=== PATIENT | male | born 1970 | race Caucasian/White ===

== ENCOUNTER 2016-11-29 19:24 | Inpatient (IN) | payer MEDICAID ==
[~2016-11-29] VITALS: Ht 172.7 cm; Wt 80.1 kg
[2016-11-29 19:38] VITALS: Ht 172.7 cm; Wt 80.1 kg
[2016-11-29] MEDS ORDERED: SOD CHLORIDE 0.9% 1,000 ML IV STA (20:35)
[2016-11-29 20:54] LABS: ADD SCAN DIFF NO
[2016-11-29 20:55] LABS: BASOPHIL # 0.1 10^3/ul (0.0-0.1); BASOPHILS % 0.7 % (0.0-2.0); EOSINOPHILS # 0.2 10^3/ul (0.0-0.5); EOSINOPHILS % 2.1 % (0.0-7.0); HEMATOCRIT 42.8 % (42.0-52.0); LYMPHOCYTES # 1.6 10^3/ul (0.8-2.9); LYMPHOCYTES % 19.1 % (15.0-51.0); MEAN CORPUSCULAR HEMOGLOBIN 28.7 pg (29.0-33.0); MEAN PLATELET VOLUME 10.2 fl (7.4-10.4); MONOCYTE # 0.9 10^3/ul (0.3-0.9); MONOCYTES % 10.1 % (0.0-11.0); NEUTROPHIL # 5.8 10^3/ul (1.6-7.5); NEUTROPHILS % 67.5 % (39.0-77.0); PLATELET COUNT 234 10^3/UL (140-415); RED BLOOD COUNT 5.22 10^6/ul (4.70-6.10); RED CELL DISTRIBUTION WIDTH 12.1 % (11.5-14.5); WHITE BLOOD COUNT 8.6 10^3/ul (4.8-10.8)
[2016-11-29 21:14] LABS: ALBUMIN 4.4 g/dl (3.3-4.9); POTASSIUM 4.4 mmol/L (3.5-5.1)
[2016-11-29 21:16] LABS: BILIRUBIN,INDIRECT 0.3 mg/dl (0-1.1); BILIRUBIN,TOTAL 0.3 mg/dl (0.2-1.3); CREATININE 0.74 mg/dl (0.61-1.24)
--- NOTE | 2016-11-29 21:16 | RADRPT ---
PROCEDURE: XR Chest. CLINICAL INDICATION: Bowel pain. TECHNIQUE: PA and Lateral views of the chest were obtained. COMPARISON: None. FINDINGS: The cardiomediastinal silhouette is within normal limits. The lungs are clear. No signs of pleural f luid or pneumothorax are seen. The osseous structures and soft tissues are unremarkable. IMPRESSION: No evidence for active cardiopulmonary disease. RPTAT: [facility] Physician Edward Date Time Electronically viewed and signed by Brandy Roque Physician on 11/29/2016 21:15 RS/
[2016-11-29 21:17] LABS: ALBUMIN/GLOBULIN RATIO 1.57; CALCIUM 9.3 mg/dl (8.4-10.2); TOTAL PROTEIN 7.2 g/dl (6.1-8.1)
[2016-11-29 21:29] LABS: TROPONIN-I 0.052 ng/ml (0.00-0.12)
--- NOTE | 2016-11-29 21:29 | RADRPT ---
PROCEDURE: CT brain without contrast CLINICAL INDICATION: Headaches. Concern for intracranial hemorrhage TECHNIQUE: A CT of the brain was performed utilizing axial sections from the skull base through th e vertex without contrast. Sagittal and coronal images were also reformatted. The exam CTDIvol = 45. 01 mGy and DLP = 720.23 mGy-cm. COMPARISON: None available FINDINGS: No acute intracranial hemorrhage is identified. There is no mass effect or midline shift. No extra -axial fluid collection is seen. The ventricles and sulci are within normal limits for size and con figuration. Focal area of low attenuation area in the right parietal white matter near the convexit y is nonspecific, possibly the sequela of a small vessel ischemia (series 2 image 18). The remainin g white matter is grossly normal Mcduffie-white differentiation is preserved. The osseous structures are unremarkable. The mastoid air cells and visualized paranasal sinuses are clear. RPTAT:HJJR IMPRESSION: 1. No evidence of intracranial hemorrhage or mass effect. 2. Focal area of low attenuation in the right parietal subcortical white matter is nonspecific, pos sibly the sequela of small vessel ischemic disease with less likely possibilities a manifestation of migraine disorder, vasculitis or demyelination. Physician Barrera Date Time Electronically viewed and signed by Physician Barrera on 11/29/2016 21:29 /
[2016-11-29] MEDS ORDERED: ASPIRIN 81 MG TAB PO ONE (22:00)
[2016-11-29 23:56] VITALS: BP 109/70; RESP 20
[2016-11-30] VITALS (10 sets, daily range): BP systolic 96–115; BP diastolic 54–69; PULSE 55–69; RESP 16–20
[2016-11-30] MEDS ORDERED: ONDANSETRON 4 MG INJ IV PRN
[2016-11-30] MEDS ORDERED: morphine 2 MG INJ IV PRN
--- NOTE | 2016-11-30 00:19 | ERA ---
ER Documentation Chief Complaint Date/Time DATE: 11/30/16 TIME: 00:10 Chief Complaint Weakness since 1700 HPI 46-year-old man here for evaluation of 2 syncopal episodes which occurred today while in a hot shower. He called out to his who helped him lay down on the ground, episode was witnessed and he had no seizure activity although shortly after awaking he had a second syncopal episode which lasted for a few seconds as well. Upon further questioning patient states he has had tremors to his left upper extremity 2 weeks which are new. Patient denies headache or blurry vision, no vomiting or diarrhea, no complaints of chest pain or shortness of breath. Patient denies any new medication use and no history of RI or CVA ROS All systems reviewed and are negative except as per history of present illness. Medications Home Meds No Active Prescriptions or Reported Meds Allergies Allergies: Coded Allergies: gabapentin (Verified Allergy, Intermediate, hives, 11/29/16) PMhx/Soc None Medical and Surgical Hx: pt denies Medical Hx History of Surgery: Yes (RECENT LAMINECTOMY) Hx Alcohol Use: No Hx Substance Use: No Hx Tobacco Use: No Smoking Status: Never smoker FmHx Family History: No diabetes Physical Exam Vitals Vital Signs Date Time Temp Pulse Resp B/P Pulse Ox O2 Delivery O2 Flow Rate FiO2 11/29/16 22:13 59 18 115/73 99 11/29/16 19:38 98.4 64 20 116/68 98 Physical Exam GENERAL: Well-developed, well-nourished, well-hydrated, in no apparent distress , looks nontoxic in appearance HEENT: Moist mucous membranes, pink conjunctiva, no cervical spine tenderness or step-off deformities, no goiter, no jaundice or icterus, extraocular movements intact without pain. No submandibular induration, and no pharyngeal erythema NEURO: Alert and oriented 3, cranial nerves II through XII intact bilaterally, pupils equal round reactive to light, no focal deficits or facial asymmetry, sensation intact distally Strength 5/5 in upper and lower extremities bilaterally. No pronator drift, no nystagmus CARDIAC: Bradycardic and regular, no murmurs rubs or gallops LUNGS: Clear bilaterally no wheezing crackles or stridor ABDOMEN: Soft nontender, no guarding, no rigidity, no rebound, no psoas sign no obturator sign. Normoactive bowel sounds SKIN: Warm and dry to touch, no abrasions, contusions, or hematomas, no lacerations, no ecchymosis, no target lesions, and without ulcers EXTREMITIES: No clubbing cyanosis or edema, calves are bilaterally symmetrical, no Homans sign, no popliteal cord sign. Distal pulses equal and bilateral PSYCH: Normal affect without agitation or irritability Result Diagram: 11/29/16204911/29/162049 Results 24 hrs Laboratory Tests Test 11/29/16 20:50 White Blood Count 8.610^3/ul Red Blood Count 5.2210^6/ul Hemoglobin 15.0g/dl Hematocrit 42.8% Mean Corpuscular Volume 82.0fl Mean Corpuscular Hemoglobin 28.7pg Mean Corpuscular Hemoglobin Concent 35.0g/dl Red Cell Distribution Width 12.1% Platelet Count 93010^3/UL Mean Platelet Volume 10.2fl Neutrophils % 67.5% Lymphocytes % 19.1% Monocytes % 10.1% Eosinophils % 2.1% Basophils % 0.7% Nucleated Red Blood Cells % 0.0/100WBC Neutrophils # 5.810^3/ul Lymphocytes # 1.610^3/ul Monocytes # 0.910^3/ul Eosinophils # 0.210^3/ul Basophils # 0.110^3/ul Nucleated Red Blood Cells # 0.010^3/ul Sodium Level 138mmol/L Potassium Level 4.4mmol/L Chloride Level 102mmol/L Carbon Dioxide Level 23mmol/L Anion Gap 17 Blood Urea Nitrogen 18mg/dl Creatinine 0.74mg/dl Glucose Level 109mg/dl Calcium Level 9.3mg/dl Total Bilirubin 0.3mg/dl Direct Bilirubin 0.00mg/dl Indirect Bilirubin 0.3mg/dl Aspartate Amino Transf (AST/SGOT) 38IU/L Alanine Aminotransferase (ALT/SGPT) 62IU/L Alkaline Phosphatase 50IU/L Troponin I 0.052ng/ml Total Protein 7.2g/dl Albumin 4.4g/dl Globulin 2.80g/dl Albumin/Globulin Ratio 1.57 Lipase 53U/L Current Medications Medications (Trade) Dose Ordered Sig/Aron Route PRN Reason Start Time Stop Time Status Last Admin Dose Admin Sodium Chloride (NS) 1,000 ml @ 1,000 mls/hr Q1H STAT IV 11/29/16 20:35 11/29/16 21:34 DC 11/29/16 20:52 Aspirin (Aspirin) 162 mg ONCE ONCE PO 11/29/16 22:00 11/29/16 22:01 DC 11/29/16 22:09 Procedures/[facility] IV line was established patient was placed on teletypesetter monitor rhythm strip revealed a sinus bradycardia at about 60 bpm with upright P and T waves. Patient was afebrile. I administered 1 L normal saline intravenous. EKG was performed, read by me revealed a sinus bradycardia 56 bpm, normal axis with a left ventricular conduction delay and a QRS duration of 104 ms and early repolarization's in precordial leads, no concerning ST elevations or depressions noted. CBC and electrolytes were normal, liver function tests are normal, troponin was negative. CT scan of the brain was performed revealing a right subcortical infarct, although other differentials do exist. Please refer to radiologist dictation for full report. I administered aspirin 162 mg p.o. for neuroprotective measures. Patient is not a TPA candidate as his symptoms of left upper extremity tremor began about 2 weeks ago but in the setting of a abnormal finding on the right parietal subcortical region he will be admitted to telemetry setting for continued medical management and neurology consultation. Critical Care: Time: 32 minutes, this was time separate from other procedures. Treatments/Evaluations: Close monitoring and treatment of unstable vital signs, cardiorespiratory, and neurologic status, while maintaining tight balance of fluid, respiratory, and cardiac interventions. Departure Diagnosis: Primary Impression: Tremor Additional Impressions: CVA (cerebral vascular accident) Qualified Code: I63.9 - Cerebrovascular accident (CVA), unspecified mechanism Syncope Qualified Code: R55 - Syncope, unspecified syncope type Symptomatic bradycardia Condition: NATALIIA Benavidez MD November 30, 2016 00:19
[2016-11-30 04:00] LABS: ALBUMIN 3.7 g/dl (3.3-4.9)
[2016-11-30 04:01] LABS: POTASSIUM 3.7 mmol/L (3.5-5.1)
[2016-11-30 04:03] LABS: ALBUMIN/GLOBULIN RATIO 1.42; BILIRUBIN,INDIRECT 0.3 mg/dl (0-1.1); BILIRUBIN,TOTAL 0.3 mg/dl (0.2-1.3); CREATININE 0.77 mg/dl (0.61-1.24); TOTAL PROTEIN 6.3 g/dl (6.1-8.1)
[2016-11-30 04:04] LABS: CALCIUM 8.9 mg/dl (8.4-10.2); CHOL/HDL RATIO 4.7 RATIO; MAGNESIUM 2.1 mg/dl (1.7-2.5)
--- NOTE | 2016-11-30 08:22 | HP ---
DATE OF ADMISSION: 11/29/2016 TIME SEEN: 23:30. CHIEF COMPLAINT: Loss of consciousness. HISTORY OF PRESENT ILLNESS: The patient is a 46-year-old male with no significant past medical history who presented to the Emergency Department after having experienced a loss of consciousness. The patient was taking a shower and shaving when he experienced loss of consciousness. He said he felt heaviness in left arm and palpitations prior to syncopal episode. He was helped by his who placed him on the floor. It seems like, after the patient regained his consciousness, he had an episode of left upper extremity shaking and subsequently had another episode of loss of consciousness lasting several seconds to about a minute. He denied any chest pain, fever, chills, nausea, vomiting, headache, or blurry vision. He had a back surgery a month and for last 2 weeks he noted tremor in his left hand. He also reported "a smell of blood" for past 2 weeks. When patient presented to the ER, his initial vitals were stable. His basic labs were unremarkable. A head CT without contrast was done which showed a focal area of low attenuation in the right parietal subcortical white matter, which is nonspecific, possibly the sequela of small vessel ischemic disease with less likely possibility of a manifestation of migraine disorder. Chest x- ray without any evidence of acute cardiopulmonary disease. The patient was given aspirin and a liter of normal saline and currently admitted to telemetry unit. REVIEW OF SYSTEMS: A 12-point review of systems is performed and negative except as mentioned in HPI. PAST MEDICAL HISTORY: As per HPI. PAST SURGICAL HISTORY: As per HPI. SOCIAL HISTORY: Denied a history of tobacco, alcohol or illicit drug use. ALLERGIES: GABAPENTIN. HOME MEDICATIONS: None. PHYSICAL EXAMINATION VITAL SIGNS: Stable. GENERAL: The patient is lying in bed in no acute distress. He actually looks comfortable. HEENT: Normocephalic, atraumatic. Extraocular muscles intact. No scleral icterus. CARDIOVASCULAR: Regular rate and rhythm with no extra sounds. LUNGS: Clear. ABDOMEN: Soft, nontender, nondistended. Positive bowel sounds. EXTREMITIES: No edema. NEUROLOGIC: No focal deficits. He has 5/5 strength in both upper and lower extremities. Sensations are intact to light touch. LABORATORY: Basic CBC and CMP are unremarkable. IMAGING: Chest x-ray and a brain CT without contrast with results as mentioned in the HPI. IMPRESSION: 1. Syncope. 2. Probable cerebrovascular accident. PLAN: Continue telemetry monitoring. We will further work up his syncope and the CT of the head finding by obtaining an MRI of the brain and common carotid Doppler ultrasound and 2D echo. We will trend his troponin. The need for neurology and cardiology consults will be determined based on his clinical course. He will be evaluated by physical therapy prior to discharge. In the meantime, he will be placed on aspirin and statin and we will check a fasting lipid panel, A1c and TSH in the morning. Further workup and management per clinical course. Dictated By: JENNIFER ANDERSON/CASANDRA Conf#: [id number] DID#: [id number] MTDD
[2016-11-30] MEDS: ASPIRIN 81 MG TAB PO SCH (08:36)
[2016-11-30] MEDS: ENOXAPARIN 40 MG/0.4 ML SYG SC SCH (08:40)
--- NOTE | 2016-11-30 09:19 | RADRPT ---
PROCEDURE: Carotid ultrasound CLINICAL INDICATION: Stroke, carotid bruits TECHNIQUE: Mcduffie scale, color doppler, spectral doppler ultrasound of the bilateral carotid and rasta tebral arteries. This study indirectly references the measurement of the distal ICA diameter as the denominator for s tenosis measurement. Validated velocity measurements with angiographic measurements, velocity criter ia are extrapolated from diameter data as defined by: *Cartoid artery stenosis: mcduffie-scale and Doppl er US diagnosis. Society of Radiologists in Ultrasound Consensus Conference. Radiology 2003; 229: 34 0-346. SRU Consensus Conference Criteria for the Diagnosis of Carotid Artery Stenosis* Degree of Stenosis, % ICA PSV, cm/sec Plaque Estimate, % ICA/CCA PSV Ratio Normal <125 None <2.0 <50 <125 <50 <2.0 50 69 125-230 >50 2.0-4.0 >70 but less than near occlusion >230 >50 <4.0 Near occlusion High, low, or undetectable Visible Variable Total occlusion Undetectable Visible, no detectable lumen Not applicable COMPARISON: No prior studies are available for comparison. FINDINGS: Location Right CHY402 cm/sec Prox ICA 109 cm/sec Mid ICA80 cm/sec Dist ASU305 cm/sec YYC261 cm/sec ICA/CCA1.3 Left LVR785 cm/sec Prox ICA 91 cm/sec Mid ICA98 cm/sec Dist ICA91 cm/sec MHG929 cm/sec ICA/CCA0.9 Plaque burden: No significant plaque is seen. Antegrade flow is seen within the vertebral arteries bilaterally. IMPRESSION: Elevated peak systolic velocities are observed within the distal portion of the right internal carot id artery suggesting a 50 - 69% stenosis however this appears discordant with the visualized degree of plaque burden and may be due to tortuosity. CT angiography of the extracranial circulation is re commended for further evaluation. RPTAT: AADD .Ozzy Suarez MD, Date Time Electronically viewed and signed by .Ozzy Suarez MD, on 11/30/2016 09:18 .B/
--- NOTE | 2016-11-30 16:16 | RADRPT ---
PROCEDURE: MRI Brain without contrast. CLINICAL INDICATION: Syncope. TECHNIQUE: An MRI of the brain was performed utilizing the following sequences: Sagittal and axial T1 weighted, axial T2 weighted, axial diffusion weighted with ADC mapping, coronal GRE, and axial F LAIR. COMPARISON: Brain CT 11/29/2016. FINDINGS: No diffusion weighted abnormalities are seen to suggest the presence of acute ischemia or recent inf arct. No hypointense signal abnormalities are seen on the GRE images to suggest the presence of blo od degradation products. There is no evidence of intracranial hemorrhage, mass effect, or midline s hift. No extra-axial fluid collections are seen. The ventricles and sulci are mildly enlarged indica tive of volume loss. Several foci of T2 and FLAIR hyperintensity are seen in the deep and subcortical white matter most p rominent in the right parietal subcortical white matter, nonspecific in appearance though perhaps re flective of complicated migraines, early microvascular ischemic disease, demyelination, sequela from prior traumatic or inflammatory insults. No abnormal intracranial vascular flow void is noted. The visualized paranasal sinuses demonstrate m ild mucosal thickening mainly in ethmoid air cells. There is a small mucous retention cyst in the p osterior right maxillary sinus. IMPRESSION: 1. No acute intracranial hemorrhage, infarction or mass. 2. Several foci of white matter signal abnormality, nonspecific in appearance though perhaps reflec tive of complicated migraines, early microvascular ischemic disease, demyelination, sequela from elinor or traumatic or inflammatory insults. 3. Mild generalized cerebral volume loss. RPTAT: HFN .Clifton Gomez MD, MD Date Time Electronically viewed and signed by .Clifton Gomez MD, MD on 11/30/2016 16:15 .N/
--- NOTE | 2016-11-30 17:26 | RADRPT ---
Echocardiogram Report Patient Name: STEPHAN LI Gender: Male Date: 1970 Study Date: 30-Nov-2016 Rn Float: FABRIZIO Location: I Ref. Physician: JENNIFER MARRUFO Quality: Adequate Procedures: Transthoracic echocardiogram with complete 2D, M-Mode, and Doppler examination. Indications: Syncope. 2D/M Mode Doppler Measurement Value Normal Ranges Measurement Value Normal Ranges AoR Diam MM 3.5 cm AV Peak Kana 1.2 m/sec ACS MM 2.1 cm AV Peak PG 6.2 mmHg LVIDd 2D 4.5 3.5 - 5.6 cm LVOT Peak Kana 1.0 m/sec LVIDs 2D 2.8 2.1 - 4.1 cm LVOT Peak PG 4.3 mmHg LVPWd 2D 1.1 0.6 - 1.1 cm MV E Peak Kana 0.7 m/sec IVSd 2D 1.1 0.6 - 1.1 cm MV A Peak Kana 0.4 m/sec EDV 2D 94.8 cm3 MV E/A 1.7 ESV 2D 21.9 cm3 MV Decel Time 251 msec LA Dimen 2D 3.4 2.3 - 4.0 cm MV Decel [place] 3 MV E/A 1.7 TR Peak Kana 2.2 m/sec TR Peak PG 19.1 mmHg PV Peak Kana 1.3 m/sec PV Peak PG 7.0 mmHg RVSP 22.1 mmHg Findings Left Ventricle: Normal left ventricular systolic function. Normal left ventricular cavity size. Normal left ventricular wall thickness. Ejection fraction is visually estimated at 65 %. Tissue Doppler/Mitral Doppler indices are within normal limits. Right Ventricle: Normal right ventricular size. Normal right ventricular systolic function. Left Atrium: The left atrium is normal in size. Right Atrium: The right atrium is normal in size. Atrial Septum: Normal atrial septum. Mitral Valve: Normal appearance and function of the mitral valve with trace physiologic regurgitation. Aortic Valve: No significant aortic stenosis or insufficiency. Normal trileaflet aortic valve structure. Tricuspid Valve: Normal appearance and function of the tricuspid valve with trace physiologic regurgitation. Estimated peak PA systolic pressure 22 mmHg. Pulmonic Valve: Normal pulmonic valve appearance. No evidence of pulmonic regurgitation. Pericardium: Normal pericardium with no significant pericardial effusion. Aorta: Normal aortic root. IVC: Normal size and normal respiratory collapse consistent with normal right atrial pressure. Pulmonary Artery: Normal pulmonary artery size. Conclusions 1.Normal left ventricular systolic function. Normal left ventricular cavity size. Normal left ventricular wall thickness. Ejection fraction is visually estimated at 65 %. Tissue Doppler/Mitral Doppler indices are within normal limits. 2.No significant valvular stenosis or regurgitation seen. 3.Estimated peak PA systolic pressure 22 mmHg based on RA pressure of 3 mmHg. Electronically Signed By: Awais Briseno 30-Nov-2016 17:25:11 -0700 Patient Name: STEPHAN LI Study Date: 30-Nov-2016 [id number]
--- NOTE | 2016-11-30 18:03 | PN ---
Date/Time of Note Date/Time of Note DATE: 11/30/16 TIME: 17:59 Assessment/Plan VTE Prophylaxis VTE Prophylaxis Intervention: LMWH Lines/Catheters IV [facility] [place] Urinary Cath still in place: No Assessment/Plan Chief Complaint/Hosp Course 1. Syncope-vasovagal from back pain versus alternate cause -MRI shows Several foci of white matter signal abnormality, nonspecific in appearance though perhaps reflective of complicated migraines, early microvascular ischemic disease, demyelination, sequela from prior traumatic or inflammatory insults -Neuro consult in a.m. -PT eval -A1c and LDL are within normal limits 2. Recent back surgery -Pain control Prophylaxis: Lovenox Problems: Subjective 24 Hr Interval Summary Constitutional: no complaints Exam/Review of Systems Vital Signs Vitals Vital Signs Date Time Temp Pulse Resp B/P Pulse Ox O2 Delivery O2 Flow Rate FiO2 11/30/16 16:05 65 11/30/16 15:23 97.8 16 108/69 97 Intake and Output 11/29/16 11/29/16 11/30/16 15:00 23:00 07:00 Intake Total 200 ml Balance 200 ml Exam Constitutional: alert, oriented Respiratory: clear to auscultation Cardiovascular: regular rate and rhythm Gastrointestinal: soft, No distended Musculoskeletal: nl extremities to inspection Results Result Diagram: 11/29/16204911/30/16337 Results 24 hrs Laboratory Tests Test 11/29/16 20:50 11/30/16 03:38 11/30/16 09:20 White Blood Count 8.6 Red Blood Count 5.22 Hemoglobin 15.0 Hematocrit 42.8 Mean Corpuscular Volume 82.0 Mean Corpuscular Hemoglobin 28.7 L Mean Corpuscular Hemoglobin Concent 35.0 Red Cell Distribution Width 12.1 Platelet Count 234 Mean Platelet Volume 10.2 Neutrophils % 67.5 Lymphocytes % 19.1 Monocytes % 10.1 Eosinophils % 2.1 Basophils % 0.7 Nucleated Red Blood Cells % 0.0 Neutrophils # 5.8 Lymphocytes # 1.6 Monocytes # 0.9 Eosinophils # 0.2 Basophils # 0.1 Nucleated Red Blood Cells # 0.0 Sodium Level 138 141 Potassium Level 4.4 3.7 Chloride Level 102 106 Carbon Dioxide Level 23 25 Anion Gap 17 H 14 Blood Urea Nitrogen 18 16 Creatinine 0.74 0.77 Glucose Level 109 146 Calcium Level 9.3 8.9 Total Bilirubin 0.3 0.3 Direct Bilirubin 0.00 0.00 Indirect Bilirubin 0.3 0.3 Aspartate Amino Transf (AST/SGOT) 38 30 Alanine Aminotransferase (ALT/SGPT) 62 60 Alkaline Phosphatase 50 48 Troponin I 0.052 0.052 0.013 Total Protein 7.2 6.3 Albumin 4.4 3.7 Globulin 2.80 2.60 Albumin/Globulin Ratio 1.57 1.42 Lipase 53 Hemoglobin A1c 5.1 Phosphorus Level 4.0 Magnesium Level 2.1 Triglycerides Level 194 H Cholesterol Level 181 LDL Cholesterol, Calculated 104 HDL Cholesterol 38 Cholesterol/HDL Ratio 4.7 Medications Medications Current Medications Aspirin (Aspirin) 81 mg DAILY PO Last administered on 11/30/16 08:36; Admin Dose 81 MG; Start 11/30/16 at 09:00 Ondansetron HCl (Zofran Inj) 4 mg Q6H PRN IV NAUSEA AND/OR VOMITING; Start at 00:00 Acetaminophen (Tylenol Tab) 650 mg Q6H PRN PO PAIN AND OR ELEVATED TEMP; Start 11/30/16 at 00:00 Atorvastatin Calcium (Lipitor) 40 mg HS PO ; Start 11/30/16 at 21:00 Morphine Sulfate (morphine) 2 mg Q4H PRN IV PAIN LEVEL 6-10; Start 11/30/16 at 00:00 Enoxaparin Sodium (Lovenox) 40 mg DAILY SC Last administered on 11/30/16 08:40 ; Admin Dose 40 MG; Start 11/30/16 at 09:00 NANCY FERREIRA November 30, 2016 18:03
[2016-11-30] MEDS: ACETAMINOPHEN 325 MG TAB PO PRN (20:50)
[2016-11-30] MEDS: ATORVASTATIN 40 MG TAB PO SCH (20:50)
[2016-11-30 23:56] LABS: ADD SCAN DIFF NO; BASOPHILS % 0.7 % (0.0-2.0); EOSINOPHILS # 0.2 10^3/ul (0.0-0.5); EOSINOPHILS % 3.2 % (0.0-7.0); HEMATOCRIT 39.3 % (42.0-52.0); HEMOGLOBIN 13.7 g/dl (14.0-18.0); LYMPHOCYTES # 2.5 10^3/ul (0.8-2.9); LYMPHOCYTES % 41.8 % (15.0-51.0); MEAN CORPUSCULAR HGB CONC 34.9 g/dl (32.0-37.0); MEAN CORPUSCULAR VOLUME 83.3 fl (82.0-101.0); MEAN PLATELET VOLUME 10.3 fl (7.4-10.4); MONOCYTE # 0.6 10^3/ul (0.3-0.9); MONOCYTES % 9.6 % (0.0-11.0); NEUTROPHIL # 2.6 10^3/ul (1.6-7.5); NEUTROPHILS % 44.4 % (39.0-77.0); PLATELET COUNT 203 10^3/UL (140-415); RED BLOOD COUNT 4.72 10^6/ul (4.70-6.10); RED CELL DISTRIBUTION WIDTH 12.1 % (11.5-14.5)
[2016-12-01] VITALS (9 sets, daily range): BP systolic 102–128; BP diastolic 54–77; PULSE 56–62; RESP 18–20
[2016-12-01] MEDS: ASPIRIN 81 MG TAB PO SCH (09:32)
[2016-12-01] MEDS: ENOXAPARIN 40 MG/0.4 ML SYG SC SCH (09:40)
--- NOTE | 2016-12-01 11:42 | PN ---
Date/Time of Note Date/Time of Note DATE: 12/01/16 TIME: 11:39 Assessment/Plan VTE Prophylaxis VTE Prophylaxis Intervention: LMWH Lines/Catheters IV C[facility] Type [facility]from [facility] Saline Lock Urinary Cath still in place: No Assessment/Plan Assessment/Plan 1. Syncope-vasovagal from back pain versus alternate cause -Based on symptomatology, we will further workup nonspecific abnormality on carotid Dopplers with a CT angiogram. We will also include a CT of the cervical spine. -Neuro consult called and pending -PT eval -A1c and LDL are within normal limits 2. Recent back surgery -Pain control Prophylaxis: Lovenox Subjective 24 Hr Interval Summary Free Text/Dictation Patient is much improved. He however notes tremors at rest in his left upper extremity. This is controlled by clenching his hands, or by doing something. Exam/Review of Systems Vital Signs Vitals Vital Signs Date Time Temp Pulse Resp B/P Pulse Ox O2 Delivery O2 Flow Rate FiO2 12/01/16 11:08 98.0 61 20 128/77 98 Intake and Output 11/30/16 11/30/16 12/01/16 15:00 23:00 07:00 Intake Total 1100 ml 360 ml Balance 1100 ml 360 ml Exam Constitutional: alert, oriented Respiratory: clear to auscultation Cardiovascular: regular rate and rhythm Gastrointestinal: soft, No distended Musculoskeletal: nl extremities to inspection Psych: anxiety Neurological: nl mental status, No confused, No focal weakness Results Result Diagram: 11/30/16 3218 11/30/16 0338 Results 24 hrs Laboratory Tests Test 11/30/16 23:52 White Blood Count 6.0 # Red Blood Count 4.72 Hemoglobin 13.7 L Hematocrit 39.3 L Mean Corpuscular Volume 83.3 Mean Corpuscular Hemoglobin 29.0 Mean Corpuscular Hemoglobin Concent 34.9 Red Cell Distribution Width 12.1 Platelet Count 203 Mean Platelet Volume 10.3 Neutrophils % 44.4 Lymphocytes % 41.8 Monocytes % 9.6 Eosinophils % 3.2 Basophils % 0.7 Nucleated Red Blood Cells % 0.0 Neutrophils # 2.6 Lymphocytes # 2.5 Monocytes # 0.6 Eosinophils # 0.2 Basophils # 0.0 Nucleated Red Blood Cells # 0.0 Medications Medications Current Medications Aspirin (Aspirin) 81 mg DAILY PO Last administered on 12/01/16t 09:32; Admin Dose 81 MG; Start 11/30/16 at 09:00 Ondansetron HCl (Zofran Inj) 4 mg Q6H PRN IV NAUSEA AND/OR VOMITING; Start at 00:00 Acetaminophen (Tylenol Tab) 650 mg Q6H PRN PO PAIN AND OR ELEVATED TEMP Last administered on 11/30/16 20:50; Admin Dose 650 MG; Start 11/30/16 at 00:00 Atorvastatin Calcium (Lipitor) 40 mg HS PO Last administered on 11/30/16 20:50 ; Admin Dose 40 MG; Start 11/30/16 at 21:00 Morphine Sulfate (morphine) 2 mg Q4H PRN IV PAIN LEVEL 6-10; Start 11/30/16 at 00:00 Enoxaparin Sodium (Lovenox) 40 mg DAILY SC Last administered on 12/01/16 09:40 ; Admin Dose 40 MG; Start 11/30/16 at 09:00 Procedures Procedures PROCEDURE: MRI Brain without contrast. CLINICAL INDICATION: Syncope. TECHNIQUE: An MRI of the brain was performed utilizing the following sequences : Sagittal and axial T1 weighted, axial T2 weighted, axial diffusion weighted with ADC mapping, coronal GRE, and axial FLAIR. COMPARISON: Brain CT 11/29/2016. FINDINGS: No diffusion weighted abnormalities are seen to suggest the presence of acute ischemia or recent infarct. No hypointense signal abnormalities are seen on the GRE images to suggest the presence of blood degradation products. There is no evidence of intracranial hemorrhage, mass effect, or midline shift. No extra- axial fluid collections are seen. The ventricles and sulci are mildly enlarged indicative of volume loss. Several foci of T2 and FLAIR hyperintensity are seen in the deep and subcortical white matter most prominent in the right parietal subcortical white matter, nonspecific in appearance though perhaps reflective of complicated migraines, early microvascular ischemic disease, demyelination, sequela from prior traumatic or inflammatory insults. No abnormal intracranial vascular flow void is noted. The visualized paranasal sinuses demonstrate mild mucosal thickening mainly in ethmoid air cells. There is a small mucous retention cyst in the posterior right maxillary sinus. IMPRESSION: 1. No acute intracranial hemorrhage, infarction or mass. 2. Several foci of white matter signal abnormality, nonspecific in appearance though perhaps reflective of complicated migraines, early microvascular ischemic disease, demyelination, sequela from prior traumatic or inflammatory insults. 3. Mild generalized cerebral volume loss. RPTAT: HFN .Clifton Gomez MD, MD Date Time Electronically viewed and signed by .Clifton Gomez MD, MD on 11/30/2016 16: 15 .N/ CC: JENNIFER MARRUFO MD PROCEDURE: Carotid ultrasound CLINICAL INDICATION: Stroke, carotid bruits TECHNIQUE: Mcduffie scale, color doppler, spectral doppler ultrasound of the bilateral carotid and vertebral arteries. This study indirectly references the measurement of the distal ICA diameter as the denominator for stenosis measurement. Validated velocity measurements with angiographic measurements, velocity criteria are extrapolated from diameter data as defined by: *Cartoid artery stenosis: mcduffie-scale and Doppler US diagnosis. Society of Radiologists in Ultrasound Consensus Conference. Radiology 2003; 229: 340-346. SRU Consensus Conference Criteria for the Diagnosis of Carotid Artery Stenosis* Degree of Stenosis, % ICA PSV, cm/sec Plaque Estimate, % ICA/CCA PSV Ratio Normal <125 None <2.0 <50 <125 <50 <2.0 50 69 125-230 >50 2.0-4.0 >70 but less than near occlusion >230 >50 <4.0 Near occlusion High, low, or undetectable Visible Variable Total occlusion Undetectable Visible, no detectable lumen Not applicable COMPARISON: No prior studies are available for comparison. FINDINGS: Location Right CCA 120 cm/sec Prox ICA 109 cm/sec Mid ICA 80 cm/sec Dist ICA 155 cm/sec ECA 130 cm/sec ICA/CCA 1.3 Left CCA 110 cm/sec Prox ICA 91 cm/sec Mid ICA 98 cm/sec Dist ICA 91 cm/sec ECA 118 cm/sec ICA/CCA 0.9 Plaque burden: No significant plaque is seen. Antegrade flow is seen within the vertebral arteries bilaterally. IMPRESSION: Elevated peak systolic velocities are observed within the distal portion of the right internal carotid artery suggesting a 50 - 69% stenosis however this appears discordant with the visualized degree of plaque burden and may be due to tortuosity. CT angiography of the extracranial circulation is recommended for further evaluation. RPTAT: AADD .Jennifer Suarez MD, MD Date Time Electronically viewed and signed by .Jennifer Suarez MD, MD on 11/30/2016 09:18 .B/ CC: JENNIFER MARRUFO MD, BOLATITO M. December 01, 2016 11:42
[2016-12-01] MEDS ORDERED: IOHEXOL 100 ML ONE (16:51)
[2016-12-01] MEDS ORDERED: SOD CHLORIDE 0.9% 100 ML ONE (16:51)
[2016-12-01 17:16] LABS: ADD UMIC NO; URINE BILIRUBIN (Dip) NEGATIVE (NEGATIVE); URINE BLOOD (Dip) NEGATIVE (NEGATIVE); URINE COLOR LT. YELLOW (YELLOW); URINE GLUCOSE (Dip) NEGATIVE (NEGATIVE); URINE KETONES (Dip) NEGATIVE (NEGATIVE); URINE LEUKOCYTE ESTERASE (Dip) NEGATIVE (NEGATIVE); URINE NITRITE (Dip) NEGATIVE (NEGATIVE); URINE TOTAL PROTEIN (Dip) NEGATIVE (NEGATIVE); URINE UROBILINOGEN (Dip) 0.2 E.U./dL (0.1-1.0)
--- NOTE | 2016-12-01 17:24 | RADRPT ---
PROCEDURE: CTA Neck. CLINICAL INDICATION: Carotid stenosis TECHNIQUE: The study was performed utilizing a multidetector CT scanner. Thin cut axial sections w ere obtained through the neck with the use of 100 cc of Isovue 370 nonionic intravenous contrast mat erial. Coronal and sagittal maximal intensity projection reformations were obtained. Additional 3D volumetric renderings were created. The images were reviewed on a PACS workstation. The total CTDI vol is 18/20 mGy and the DLP is 630 mGy-cm. One or more of the following dose reduction techniques w ere used: Automated exposure control, Adjustment of the mA and/or kV according to patient size, and/ or use of iterative reconstruction technique. COMPARISON: Carotid ultrasound 11/30/2016 FINDINGS: No significant stenosis or vessel dissection of the bilateral common carotid, bilateral cervical int ernal carotid or bilateral vertebral arteries. Degenerative changes of the cervical spine. IMPRESSION: No significant cervical arterial stenosis identified. No CT correlate for the recent ultrasound findings. RPTAT: AA .Eladio Kamara MD, MD Date Time Electronically viewed and signed by .Eladio Kamara MD, on 12/01/2016 17:23 .T/
[2016-12-01] MEDS: ATORVASTATIN 40 MG TAB PO SCH (20:31)
[2016-12-02 07:39] VITALS: BP 104/70; RESP 18
[2016-12-02] MEDS: ASPIRIN 81 MG TAB PO SCH (09:37)
[2016-12-02] MEDS: ENOXAPARIN 40 MG/0.4 ML SYG SC SCH (10:07)
[2016-12-02] MEDS: ACETAMINOPHEN 325 MG TAB PO PRN (12:23)
--- NOTE | 2016-12-02 13:44 | PN ---
DATE: 12/02/2016 TIME OF EVALUATION 12:30 p.m. SUBJECTIVE DATA: Complains of generalized weakness. Complains of tremor of the left upper extremity at times. OBJECTIVE DATA: VITAL SIGNS: Temperature 97.5, pulse rate 72, respiratory rate 18, blood pressure 104/70, oxygen saturation 96% on room air. GENERAL: This is a well-built, well-nourished male patient lying in bed in no apparent distress. HEENT: Head normocephalic and atraumatic. Eyes: Anicteric sclerae. Conjunctivae clear. ENT: Nasal septum is midline. Oral mucosa is moist. NECK: Supple. No JVD noticed. RESPIRATORY: Bilaterally clear to auscultation. No use of accessory muscles of respiration. CARDIAC: Regular rate and rhythm. No murmurs heard. ABDOMEN: Soft, nontender and nondistended. Bowel sounds positive in all 4 quadrants. GENITOURINARY: Deferred. EXTREMITIES: No cyanosis, no clubbing, no edema. GENITOURINARY: Deferred. EXTREMITIES: No cyanosis, no clubbing, no edema. Peripheral pulses palpable. NEUROLOGIC: The patient is awake, alert and oriented. Cranial nerves are grossly intact. LABORATORY AND DIAGNOSTIC DATA: Neck CT angiogram. No significant cervical stenosis identified. ASSESSMENT AND PLAN: 1. Syncope, most probably secondary to vasovagal response. 2D echocardiogram showed preserved left ventricular ejection fraction. Carotid Doppler study showed some evidence of stenosis. However, there was no evidence for stenosis as per CT angiogram of the neck. Status post evaluation by physical therapy. 2. Recent back surgery. Continue pain control. 3. Dyslipidemia. Elevated LDL and elevated triglycerides. Continue statins. 4. Fluid, electrolytes and nutrition. Low cholesterol diet. 5. Deep venous thrombosis prophylaxis. Subcutaneous Lovenox. 6. Gastrointestinal prophylaxis not indicated. PLAN: Await neurology evaluation. Neurology consult has been called. Case discussed with Dr. Mary. SOSA MARY MD, AM/CASANDRA Conf#: [id number] DID#: [id number] MTDD
[2016-12-02 19:26] VITALS: BP 117/60; RESP 18
[2016-12-02] MEDS: ATORVASTATIN 40 MG TAB PO SCH (20:30)
--- NOTE | 2016-12-02 23:40 | CONS ---
DATE OF ADMISSION: 11/29/2016 DATE OF CONSULTATION: TYPE OF CONSULTATION: Neurology. Thank you for your kind referral for evaluation of syncope. HISTORY OF PRESENT ILLNESS: The patient is a 46-year-old gentleman with no past medical history with exception of chronic low back pain, lumbar radiculopathy which required spinal surgery, he had it on October 21 this year. The patient stated that a few days ago on the day of admission in the afternoon he was left a hot shower and was shaving his head when he suddenly felt palpitations, dizziness and heaviness of the left arm. He called his and lowered himself to the floor, while lowering himself to the floor he had short lasting episodes of loss of consciousness with fast return to baseline while on the floor. No seizures, no post-event confusion, no incontinence and no tongue bites. Patient was pale and limp according to the . Also, patient stated that for about a week or 10 days following the surgery he had the smell of blood, but then it disappears. In the last 2 weeks, he noticed occasional tremulousness in the fingers of the left hand which was usually positional and he may put his hand in some position to develop mild tremulousness. In the hospital, patient had EKG normal sinus rhythm. Echocardiogram within normal limits, ejection fraction 65. He was on telemetry and at least according to the chart, no dysrhythmias noticed. He had carotid ultrasound which was read as moderate stenosis of the right internal carotid artery, but possibly changes are due to tortuosity of the vessel, so CT angiogram was obtained and was normal. MRI of the brain without contrast was also done showing a few nonspecific white matter lesions. No other abnormality was found. The patient has no complaints currently, again, he came with normal CBC. On admission, his BUN was 18, creatinine 0.74. The rest of comprehensive metabolic panel including troponins within normal limits. Cholesterol 181, LDL 104. Urinalysis normal. On admission, his blood pressure was a little on the lower side 96/55. I do not see if orthostatic vital signs were done. CURRENT MEDICATIONS 1. Lipitor 40. 2. Aspirin 81. 3. Lovenox. ALLERGIES: GABAPENTIN. SOCIAL HISTORY: No alcohol, tobacco, drug use. FAMILY HISTORY: Noncontributory. REVIEW OF SYSTEMS: All pertinent positives included in the above history of present illness. PHYSICAL EXAMINATION: VITAL SIGNS: Temperature 98.4, 58 pulse, 18 respiration, 117/60 blood pressure. GENERAL: Not in acute distress, lying in bed. HEENT: Normocephalic, atraumatic head. NECK: No carotid bruits. No thyromegaly. LUNGS: Clear to auscultation bilaterally. CARDIAC: Normal cardiac rhythm and sounds. ABDOMEN: Soft, nontender. EXTREMITIES: No cyanosis, clubbing or edema. NEUROLOGIC: He is awake, alert, and oriented x3 with fluent speech. Cranial nerve examination shows intact visual crouch bilaterally. Pupils round, reactive to light from 4 to 2 mm bilaterally. Extraocular movements intact without nystagmus. Symmetrical face. Preserved facial strength and sensation. Tongue is in midline. Palate elevates symmetrically. Motor strength examination preserved in all extremities. Normal bulk, tone, and strength. There is minimal giveway in the right lower extremity secondary to radiating pain to the back, but no major weakness noticed. Sensory examination grossly intact to light touch and pain. Deep tendon reflexes 2+ throughout, absent right ankle jerk. Downgoing toes bilaterally. Coordination preserved on finger -to-finger testing. No dysmetria or tremor. Gait was not assessed. At baseline he is using a walker after the spinal surgery. He does have mild atrophy in the muscles of the cuff on the right. IMPRESSION: Status post syncopal episode, etiology? likely vasovagal. The patient left hot shower, maybe that was the reason causing some hypotension. His blood pressure on the first day in the hospital at times when on the lower site. Patient complained of short lasting sensation of dizziness along with palpitations and maybe heaviness of the left arm, but it does not seem to be a true transient ischemic attack, but rather symptoms of presyncope to me. All workup was negative. I would continue current treatment. He was put on aspirin and Lipitor. I think it is reasonable to use. Intermittent left hand tremor in some particular positions, the patient could provoke it, should be followed on out pt basis. I do not see any signs of other tremor disorders and he does not need to be on any medicines for the tremor. Clearly it is not a so-called hand shaking TIA because he could provoke this tremor by peculiar positioning of the hand and the arm. Thank you very much for this interesting consult. Dictated By: WALT RAGLAND/CASANDRA Conf#: [id number] [facility]#: [id number] MTDD
[2016-12-03 05:32] LABS: ADD SCAN DIFF NO
[2016-12-03 05:35] LABS: BASOPHIL # 0.1 10^3/ul (0.0-0.1); EOSINOPHILS # 0.2 10^3/ul (0.0-0.5); EOSINOPHILS % 3.1 % (0.0-7.0); HEMATOCRIT 42.8 % (42.0-52.0); HEMOGLOBIN 14.7 g/dl (14.0-18.0); LYMPHOCYTES # 2.4 10^3/ul (0.8-2.9); LYMPHOCYTES % 40.3 % (15.0-51.0); MEAN CORPUSCULAR HEMOGLOBIN 28.6 pg (29.0-33.0); MEAN CORPUSCULAR HGB CONC 34.3 g/dl (32.0-37.0); MEAN CORPUSCULAR VOLUME 83.3 fl (82.0-101.0); MEAN PLATELET VOLUME 10.6 fl (7.4-10.4); MONOCYTE # 0.7 10^3/ul (0.3-0.9); MONOCYTES % 11.2 % (0.0-11.0); NEUTROPHIL # 2.7 10^3/ul (1.6-7.5); NEUTROPHILS % 43.9 % (39.0-77.0); PLATELET COUNT 206 10^3/UL (140-415); RED BLOOD COUNT 5.14 10^6/ul (4.70-6.10); RED CELL DISTRIBUTION WIDTH 12.2 % (11.5-14.5); WHITE BLOOD COUNT 6.1 10^3/ul (4.8-10.8)
[2016-12-03 05:54] LABS: MAGNESIUM 2.1 mg/dl (1.7-2.5); PHOSPHORUS 5.6 mg/dl (2.5-4.9)
[2016-12-03 05:57] LABS: CALCIUM 9.5 mg/dl (8.4-10.2); CREATININE 0.8 mg/dl (0.61-1.24); POTASSIUM 4.4 mmol/L (3.5-5.1)
[2016-12-03 08:13] VITALS: BP 91/54; RESP 14
[2016-12-03] MEDS: ASPIRIN 81 MG TAB PO SCH (08:14)
[2016-12-03] MEDS: ENOXAPARIN 40 MG/0.4 ML SYG SC SCH (08:19)
--- NOTE | 2016-12-03 10:37 | PDOCDIS ---
Discharge Instructions DIAGNOSIS Discharge Diagnosis: Syncope secondary to vasovagal response. CONDITION Patient Condition: Stable HOME CARE INSTRUCTIONS: Diet Instructions: Low Fat /CholesterolSpecial Diet: cardiac FOLLOW UP/APPOINTMENTS Appointments Smith Mercedes MD Specialty: Internal Medicine Office Address: [facility] [place] [id number] Office OTHER ORDERS: Other Orders: 1. Take medications as per prescription. Take pain medications as needed. 2. Use front wheeled walker and cane as necessary for ambulation. 3. Follow-up with your primary care physician in 2 weeks. If you do not have a primary care physician, please call Dr. Smith Mercedes's office. 4. Take a low-cholesterol diet. SOSA MARTIN NP December 03, 2016 10:37
[2016-12-03] MEDS ORDERED: ATOR40TA68 PO (10:38)
[2016-12-03] MEDS ORDERED: ASPI81TA3 PO (10:38)
--- NOTE | 2016-12-03 11:48 | DS ---
DATE OF ADMISSION: 11/29/2016 DATE OF DISCHARGE: 12/03/2016 FINAL DIAGNOSES: 1. Syncope secondary to vasovagal response. 2. Chronic back pain. 3. Bilateral lower extremity weakness. 4. Dyslipidemia. CONSULTATIONS: Dr. Cody Landin, Neurology. HOSPITAL COURSE: This is a 46-year-old male with no significant past medical history other than chronic back pain and recent low back surgery who was brought to the emergency room after he experienced a loss of consciousness. The patient was apparently taking a hot shower and shaving when he experienced the loss of consciousness. The patient verbalized that he felt heaviness in the left arm and palpitations prior to the syncopal episode. The patient was helped by his , who placed him on the floor. The patient regained his consciousness momentarily and had an episode of left upper extremity shaking. There was no reported chest pain, fevers, chills, nausea, vomiting, headache or blurred vision. In the emergency room at [facility], his vital signs were stable. His labs were unremarkable. A brain CT scan showed a focal are of low attenuation in the right parietal subcortical white matter, which is nonspecific , but possibly a sequelae of small vessel ischemic disease, but less likely possibility of a manifestation of migraine disorder. Chest x-ray was negative for any cardiopulmonary findings. The patient was treated with aspirin and IV normal saline in the emergency room and was admitted to telemetry floor. The patient underwent extensive workup. The patient's 2D echocardiogram showed preserved left ventricular ejection fraction. The patient underwent a carotid Doppler study that showed elevated peak systolic velocities within the distal portion of the right internal carotid arteries suggesting a 50% to 69% stenosis. The patient underwent a CT angiogram of the neck to further evaluate the findings of the carotid Doppler. The CT angiogram did not show any significant cervical arterial stenosis. The patient also underwent a brain MRI that showed several foci of white matter signal abnormality, which are nonspecific in appearance, although perhaps are reflective of complicated migraines, early microvascular ischemic disease, demyelination, or sequelae from prior traumatic or inflammatory insult. The patient was seen and evaluated by physical therapy. Physical therapy recommended no skilled physical therapy needs in house. Nevertheless, physical therapy recommended outpatient physical therapy for bilateral lower extremity strengthening. The patient was provided with a walker and cane for help with mobility. The patient was evaluated by neurology. Neurology recommended no further evaluation. Neurology concluded that the patient's left hand tremor happens in some particular positions, and that this can be provoked by the patient and there is not any signs of other tremor disorders and he does not need any medications for the trauma. The patient's syncopal episode was concluded to be secondary to vasovagal response because the patient was having a hot shower that can cause peripheral vascular dilatation and decrease in vital organ perfusion. The patient's serial set of troponins were negative. The patient's cardiac rhythm did not show any evidence of any cardiac arrhythmias. The patient's lipid panel showed some dyslipidemia with suboptimal LDL and high triglycerides. Hence, the patient was started on statins. The patient was also maintained on low dose aspirin. The patient had a stable hospital course. The patient was cleared by consultants to be discharged home. DISCHARGE DISPOSITION/PLAN: The patient will be discharged home today. The patient was instructed to take medications as per prescription and to take pain medications as needed for pain. The patient was instructed to take a low- cholesterol diet. He was instructed to use a front-wheel walker or cane as necessary for ambulation. The patient was instructed to follow up with his primary care physician in 2 weeks, and if he does not have a primary care physician to please call Dr. Smith Mercedes's office. The patient verbalized understanding of his discharge instructions. CONDITION AT DISCHARGE: Stable. DISCHARGE MEDICATIONS: 1. Aspirin 81 mg p.o. daily. 2. Atorvastatin 40 mg p.o. at bedtime. PERTINENT LABORATORY AND DIAGNOSTIC DATA: 1. 2D echocardiogram. Normal left ventricular systolic function. Normal left ventricular cavity size. Ejection fraction is visually estimated at 65%. No significant valvular stenosis or regurgitation. Estimated peak PA systolic pressure of 22 mmHg. 2. Chest x-ray. No evidence for active cardiopulmonary disease. 3. Brain CT scan. No evidence of intracranial hemorrhage or mass effect. Focal area of low attenuation in the right parietal subcortical white matter which is nonspecific, possibly the sequela of small vessel ischemic disease with less likely possibilities, a manifestation of migraine disorder, vasculitis or demyelination. 4. Brain MRI. No acute intracranial hemorrhage, infarction or mass. Several foci of white matter signal abnormality, nonspecific in appearance though perhaps reflective of complicated migraines, early microvascular ischemic disease, demyelination, sequela from prior traumatic or inflammatory insults. Mild generalized cerebral volume loss. 5. Carotid Doppler study. Elevated peak systolic velocities within the distal portion of the right internal carotid arteries suggesting a 50% to 69% stenosis. However, this appears discordant with the visualized degree of plaque burden and may be due to tortuosity. 6. Neck CTA. No significant cervical arterial stenosis identified. No CT correlate for the recent ultrasound findings. 7. Hemoglobin A1c 5.1. 8. Fasting lipid panel: Triglycerides 195, total cholesterol 181, LDL 104, HDL 38. 9. Latest CBC: WBC 6.1, hemoglobin 14.7, hematocrit 42.8, platelet count 206. 10. Latest BMP: Sodium 139, potassium 4.4, chloride 104, carbon dioxide 20, anion gap 11, BUN 15, creatinine 0.80, glucose 88, calcium 9.5, phosphorus 5.6, magnesium 2.1. At this time, we would like to thank Dr. Ross for seeing the patient and providing clinical recommendations. The case and management of this patient was fully discussed with Dr. Mary. Approximately 35 minutes was spent on coordinating the discharge on this patient. SOSA MARY MD, AM/CASANDRA Conf#: [id number] DID#: [id number] MTDD
[2016-12-05 07:30] VITALS: BP 144/70; RESP 20
== END 2016-12-03 12:30 | disposition home health service (06) | DRG 312 ==
LOC: E/R 19:24 → TEL 22:23 → MS2 22:55
PROVIDERS: ADMIT Internal Medicine; ATTEND Internal Medicine
DX: R55 Syncope and collapse (principal); E78.5 Hyperlipidemia, unspecified; M54.9 Dorsalgia, unspecified; R53.1 Weakness; Z79.82 Long term (current) use of aspirin
CPT/HCPCS: 36415; 70450; 70498; 70551; 71010; 80048; 80053; 80061; 81003; 83036; 83690; 83735; 84100; 84484; 85025; 93005; 93306; 93880; 97163; J1650; J7030; Q9967